=== PATIENT | male | born 1980 | race Caucasian/White ===

== ENCOUNTER 2021-06-29 00:09 | Emergency (ER) | payer BC ==
[~2021-06-29] VITALS: Ht 170.2 cm; Wt 66.2 kg
--- NOTE | 2021-06-29 00:45 | NUR ---
PT PROVIDED WITH WARM BLANKETS FOR COMFORT.
--- NOTE | 2021-06-29 01:00 | NUR ---
PATIENT BIBSELF C/O NECK PAIN RADIATING TO LEFT SIDE OF THE FACE FOR THE PAST WEEK. PATIENT IS A/O X 4, RR EVEN AND UNLABORED, NO SOB NOTED. PATIENT CONNECTED TO MONITORS.
[2021-06-29] MEDS ORDERED: IBUPROFEN 600 MG TABLET PO ONE (02:00)
[2021-06-29] MEDS ORDERED: IBUP-1955 PO (02:04)
[2021-06-29] MEDS ORDERED: IBUPROFEN 600 MG TABLET ONE (02:06)
--- NOTE | 2021-06-29 02:08 | NUR ---
Patient discharged to home in stable condition. Rx and Written and verbal after care instructions given. Patient verbalizes understanding of instruction.
[2021-06-29 02:11] VITALS: BP 131/74
== END 2021-06-29 02:11 | disposition home or self-care (01) ==
LOC: ER 00:09
DX: M26.622 Arthralgia of left temporomandibular joint (principal)

== ENCOUNTER 2024-05-13 19:58 | Emergency (ER) | payer BC ==
[~2024-05-13] VITALS: Ht 170.2 cm; Wt 68.0 kg
[~2024-05-13 19:58] MED LIST: IBUP-1955 PO
[2024-05-13 20:40] LABS: BASOPHILS % (AUTO) 0.8 % (0.0-2.0); EOSINOPHILS # (AUTO) 0.1 K/uL (0.0-0.7); EOSINOPHILS % (AUTO) 1.3 % (0.0-6.0); HEMATOCRIT 43 % (39-51); HEMOGLOBIN 14.8 g/dL (13.5-17.5); LYMPHOCYTES # (AUTO) 1.8 K/uL (0.8-4.8); LYMPHOCYTES % (AUTO) 37.1 % (20.0-44.0); MEAN CORPUSCULAR HEMOGLOBIN 31 PG (26.0-33.0); MEAN CORPUSCULAR HGB CONC 34 g/dl (31.0-36.0); MEAN CORPUSCULAR VOLUME 90 fL (80-96); MONOCYTES % (AUTO) 20.7 % (2.0-12.0); NEUTROPHILS # (AUTO) 1.9 K/uL (1.8-8.9); NEUTROPHILS % (AUTO) 40.1 % (43.0-81.0); PLATELET COUNT (AUTO) 264 K/uL (150-450); RED BLOOD CELL COUNT(AUTO) 4.78 MIL/uL (4.5-6.0); RED CELL DISTRIBUTION WIDTH 13.6 % (11.5-15.0); WHITE BLOOD COUNT (AUTO) 4.8 K/uL (4.3-11.0)
[2024-05-13 20:55] LABS: CALCIUM, SERUM 9.5 mg/dL (8.5-10.1); CREATININE 0.9 mg/dL (0.6-1.3)
[2024-05-13] MEDS ORDERED: CLONIDINE HCL 0.1 MG TABLET ONE (21:31)
[2024-05-13] MEDS: CLONIDINE HCL 0.1 MG TABLET PO ONE (21:33)
[2024-05-13 21:44] LABS: ANISOCYTOSIS 1+; EOSINOPHILS % (MANUAL) 1 % (0-4); LYMPHOCYTES % (MANUAL) 36 % (16-48); MONOCYTES % (MANUAL) 13 % (0-11.0); NEUTROPHILS % (MANUAL) 48 (42-76); PLATELET ESTIMATE ADEQUATE; REACTIVE LYMPHOCYTES 2 % (0-0)
[2024-05-13 21:45] LABS: ROULEAUX 1+
[2024-05-13] MEDS ORDERED: AMLO-213 PO (22:02)
[2024-05-14 00:29] VITALS: BP 138/89; TEMP 98.7; O2SAT 99
== END 2024-05-14 00:30 | disposition home or self-care (01) ==
LOC: ER 20:00
DX: I10 Essential (primary) hypertension (principal); R51.9 Headache, unspecified; Z79.1 Long term (current) use of non-steroidal anti-inflammatories (NSAID); Z79.899 Other long term (current) drug therapy
CPT/HCPCS: 36415; 70450-TC; 80048-TC; 84484-TC; 85025-TC

== ENCOUNTER 2025-07-08 23:20 | Emergency (ER) | payer BC ==
[~2025-07-08] VITALS: Ht 170.2 cm; Wt 70.3 kg
[~2025-07-08 23:20] MED LIST changes: +AMLO-213 PO
[2025-07-09 01:05] LABS: PLATELET COUNT (AUTO) 292 K/uL (150-450); RED BLOOD CELL COUNT(AUTO) 4.73 MIL/uL (4.5-6.0); RED CELL DISTRIBUTION WIDTH 13.8 % (11.5-15.0); WHITE BLOOD COUNT (AUTO) 6.4 K/uL (4.3-11.0)
[2025-07-09 01:12] LABS: CALCIUM, SERUM 9.2 mg/dL (8.5-10.1); CREATININE 0.9 mg/dL (0.6-1.3); SODIUM SERUM 141.0 mmol/L (136-145); UREA NITROGEN, BLOOD 13.0 mg/dL (7-18)
[2025-07-09] MEDS ORDERED: IOHEXOL-300 100 ML VIAL IV ONE (01:12)
[2025-07-09] MEDS ORDERED: CT SWABBABLE VALVE TRANS SET 1 EA INFUS.SET MC ONE (01:12)
[2025-07-09] MEDS ORDERED: IV NS 0.9% 250 ML IV ONE (01:12)
[2025-07-09 01:18] LABS: ASPARTATE AMINOTRANSFERASE 14.0 U/L (15-37); TOTAL PROTEIN, SERUM 7.0 g/dL (6.4-8.2)
[2025-07-09 02:23] VITALS: BP 122/80; TEMP 98.3; O2SAT 98
== END 2025-07-09 02:32 | disposition home or self-care (01) ==
LOC: ER 23:23
DX: M79.602 Pain in left arm (principal)
CPT/HCPCS: 99284; 93971; 85025; 36415; 80053; J7050; Q9967